=== PATIENT | male | born 1975 | race Two or more races ===

== ENCOUNTER 2023-06-21 15:11 | Inpatient (IN) | payer MEDICAID ==
[~2023-06-21] VITALS: Ht 165.1 cm; Wt 76.8 kg
[2023-06-21 16:33] LABS: BASOPHILS % (AUTO) 0.3 % (0.0-2.0); HEMATOCRIT 45 % (39-51); HEMOGLOBIN 15.4 g/dL (13.5-17.5); LYMPHOCYTES % (AUTO) 7.1 % (20.0-44.0); MEAN CORPUSCULAR HEMOGLOBIN 30 PG (26.0-33.0); MEAN CORPUSCULAR HGB CONC 34 g/dl (31.0-36.0); MEAN CORPUSCULAR VOLUME 88 fL (80-96); MONOCYTES # (AUTO) 0.5 K/uL (0.1-1.30); MONOCYTES % (AUTO) 3.5 % (2.0-12.0); NEUTROPHILS % (AUTO) 89.1 % (43.0-81.0); PLATELET COUNT (AUTO) 328 K/uL (150-450); RED BLOOD CELL COUNT(AUTO) 5.13 MIL/uL (4.5-6.0); RED CELL DISTRIBUTION WIDTH 12.5 % (11.5-15.0); WHITE BLOOD COUNT (AUTO) 13.5 K/uL (4.3-11.0)
[2023-06-21 16:55] LABS: CALCIUM, SERUM 9.9 mg/dL (8.5-10.1); CREATININE 1.8 mg/dL (0.6-1.3); POTASSIUM 3.9 mmol/L (3.5-5.1)
[2023-06-21 16:59] LABS: ALBUMIN 4.8 g/dL (3.4-5.0); BILIRUBIN,DIRECT 0.1 mg/dL (0.0-0.2); BILIRUBIN,TOTAL 0.3 mg/dL (0.2-1.0)
[2023-06-21 17:04] LABS: APPEARANCE,URINE CLOUDY (CLEAR); BILIRUBIN,URINE 1+ (NEGATIVE); BLOOD, URINE 2+ Ery/uL (NEGATIVE); COLOR,URINE YELLOW (YELLOW); KETONES,URINE NEGATIVE (NEGATIVE); LEUKOCYTE ESTERASE ,URINE NEGATIVE (NEGATIVE); NITRITE, URINE POSITIVE (NEGATIVE); PROTEIN,URINE 2+ mg/dl (NEGATIVE); UGLUCOSE NEGATIVE (NEGATIVE)
[2023-06-21 17:12] LABS: ADD URINE CULTURE YES; BACTERIA,URINE 2+ /HPF (None Seen); RBC,URINE 21-50 /HPF (0-2); SQUAMOUS EPITHELIAL CELL,UR 0-2 /HPF (None Seen); YEAST,URINE Many /HPF (None Seen)
[2023-06-21 17:13] LABS: CALCIUM OXALATE CRYSTALS,UR Few /HPF (None Seen)
[2023-06-21] MEDS ORDERED: MORPHINE SULFATE INJ 2 MG/ML DISP.SYRIN ONE (17:47)
[2023-06-21] MEDS ORDERED: IV NS 0.9% 1,000 ML BAG IV ONE (18:00)
[2023-06-21] MEDS ORDERED: MORPHINE SULFATE INJ 2 MG/ML DISP.SYRIN IV ONE (18:00)
[2023-06-21] MEDS ORDERED: HYDROCODONE/APAP 10/325MG TABLET PO PRN (20:30)
[2023-06-21] MEDS ORDERED: MAGNESIUM HYDROXIDE 30 ML UDC PO PRN (20:30)
[2023-06-21] MEDS ORDERED: ACETAMINOPHEN 325 MG TABLET PO PRN (20:30)
[2023-06-21] MEDS ORDERED: MAG HYDROX/AL HYDROX/SIMETH 30 ML UDC PO PRN (20:30)
[2023-06-21] MEDS ORDERED: Z GUARD REMEDY 4 OZ OINT TP PRN (20:30)
[2023-06-21] MEDS ORDERED: ZOLPIDEM TARTRATE 5 MG TABLET PO PRN (20:30)
[2023-06-21] MEDS ORDERED: ONDANSETRON HCL/PF 4 MG/2 ML VIAL IVP PRN (20:30)
[2023-06-21] MEDS ORDERED: IV NS 0.9% 1,000 ML IV PRN (20:30)
[2023-06-21] MEDS ORDERED: KETOROLAC TROMETHAMINE INJ 30 MG/ML VIAL IV PRN (21:30)
[2023-06-21] MEDS: CEFTRIAXONE 1 G in IV D5W 50 ML IV SCH (22:08)
[2023-06-22] MEDS ORDERED: FLUCONAZOLE IN NS 100 ML IV ONE (00:04)
[2023-06-22] MEDS: FLUCONAZOLE IN NS 100 MG in PREMIX 1 EA IV SCH ×4 (00:12→23:35)
[2023-06-22 07:30] VITALS: BP 121/88; TEMP 97.7; O2SAT 98
[2023-06-22 07:44] LABS: BASOPHILS % (AUTO) 0.3 % (0.0-2.0); EOSINOPHILS # (AUTO) 0.1 K/uL (0.0-0.7); EOSINOPHILS % (AUTO) 0.6 % (0.0-6.0); HEMATOCRIT 42 % (39-51); HEMOGLOBIN 14.4 g/dL (13.5-17.5); LYMPHOCYTES # (AUTO) 1.6 K/uL (0.8-4.8); LYMPHOCYTES % (AUTO) 19.7 % (20.0-44.0); MEAN CORPUSCULAR HEMOGLOBIN 31 PG (26.0-33.0); MEAN CORPUSCULAR HGB CONC 35 g/dl (31.0-36.0); MEAN CORPUSCULAR VOLUME 89 fL (80-96); MONOCYTES # (AUTO) 0.5 K/uL (0.1-1.30); MONOCYTES % (AUTO) 6.2 % (2.0-12.0); NEUTROPHILS # (AUTO) 6.1 K/uL (1.8-8.9); NEUTROPHILS % (AUTO) 73.2 % (43.0-81.0); PLATELET COUNT (AUTO) 288 K/uL (150-450); RED BLOOD CELL COUNT(AUTO) 4.71 MIL/uL (4.5-6.0); RED CELL DISTRIBUTION WIDTH 12.7 % (11.5-15.0); WHITE BLOOD COUNT (AUTO) 8.3 K/uL (4.3-11.0)
[2023-06-22] MEDS: TAMSULOSIN 0.4 MG CAP.SR.24H PO SCH (08:38)
[2023-06-22 08:53] LABS: CALCIUM, SERUM 8.7 mg/dL (8.5-10.1)
[2023-06-22 08:57] LABS: MAGNESIUM 2.1 mg/dL (1.8-2.4); PHOSPHORUS 3.4 mg/dL (2.5-4.9)
[2023-06-22] MEDS: IV NS 0.9% 1,000 ML IV SCH ×3 (10:02→22:53)
[2023-06-22 16:00] VITALS: BP 116/83; TEMP 98.1; O2SAT 98
[2023-06-22] MEDS: DIAZEPAM 5 MG/ML 2 ML DISP.SYRIN IV SCH (17:40)
[2023-06-22] MEDS: KETOROLAC TROMETHAMINE INJ 30 MG/ML VIAL IV SCH ×2 (17:41→23:34)
[2023-06-22 20:00] VITALS: BP 119/76; TEMP 98.1; O2SAT 98
[2023-06-22 20:32] VITALS: BP 119/76; TEMP 98.1; O2SAT 98
[2023-06-22] MEDS ORDERED: CEFTRIAXONE 1GM BAG (ER ONLY) 50 ML IV ONE (21:14)
[2023-06-22] MEDS: CEFTRIAXONE 1 G in IV D5W 50 ML IV SCH (21:15)
[2023-06-23] MEDS: IV NS 0.9% 1,000 ML IV SCH (04:11)
[2023-06-23] MEDS: KETOROLAC TROMETHAMINE INJ 30 MG/ML VIAL IV SCH ×2 (05:10→12:11)
[2023-06-23] MEDS: DIAZEPAM 5 MG/ML 2 ML DISP.SYRIN IV SCH (05:10)
[2023-06-23 07:42] LABS: CREATININE, URINE 178.5 MG/DL (30.0-125.0)
[2023-06-23 08:00] VITALS: BP 134/93; TEMP 98.3; O2SAT 98
[2023-06-23] MEDS ORDERED: TAMS-12 PO ×2 (08:17→11:28)
[2023-06-23] MEDS ORDERED: CIPR-262 PO ×2 (08:17→11:28)
[2023-06-23] MEDS: TAMSULOSIN 0.4 MG CAP.SR.24H PO SCH (09:09)
== END 2023-06-23 15:30 | disposition home or self-care (01) | DRG 463 ==
LOC: ER 15:16 → MED 20:45
PROVIDERS: ADMIT Nurse Practitioner Acute Care; ATTEND Internal Medicine
DX: N13.6 Pyonephrosis (principal); N17.9 Acute kidney failure, unspecified; D72.829 Elevated white blood cell count, unspecified; B96.89 Other specified bacterial agents as the cause of diseases classified elsewhere; B37.49 Other urogenital candidiasis; N40.1 Benign prostatic hyperplasia with lower urinary tract symptoms; N43.3 Hydrocele, unspecified; Z87.442 Personal history of urinary calculi
CPT/HCPCS: 36415; 76770-TC; 76870-TC; 80048-TC; 80076-TC; 81001; 82570-TC; 83690-TC; 83735-TC; 84100-TC; 84300-TC; 85025-TC; 87086-TC; A4216; A4223; G0378; J0696; J1450; J1885; J2270; J2405; J3360; J7030; J7060